=== PATIENT | female | born 1955 | race Caucasian/White ===

== ENCOUNTER 2016-08-12 13:02 | Inpatient (IN) | payer BC ==
[~2016-08-12] VITALS: Ht 167.6 cm; Wt 93.5 kg
[2016-08-18] MEDS ORDERED: DULE100A INH (09:03)
[2016-08-18] MEDS ORDERED: PROBCAP30 PO (09:03)
[2016-08-18] MEDS ORDERED: DIVA500T PO (09:03)
[2016-08-18] MEDS ORDERED: FLUT1SPR5 EACH NARE (09:03)
[2016-08-18] MEDS ORDERED: BUPR150T12 PO (09:03)
[2016-08-18] MEDS ORDERED: BUPR75TA PO (09:03)
[2016-08-18] MEDS ORDERED: VITA200012 PO (11:10)
[2016-08-18] MEDS ORDERED: ESTR1DIS2 T-DERMAL (11:11)
--- NOTE | 2016-08-19 06:48 | MH ---
cc: MIKI COATES M.D. DATE OF ADMISSION: 08/19/2016 ADMISSION DIAGNOSIS Lumbar spinal stenosis with instability. HISTORY This patient is a 60-year-old female with severe back, hip and leg pain, left greater than right. Investigative studies shows evidence of a high-grade stenosis at L3-4 with a grade 1 spondylolisthesis and advanced degenerative change with instability at the L4-5 level. The patient likely has a spontaneous fusion of L5-S1. Despite conservative care the patient is painful and symptomatic. She presents for surgical treatment. PAST MEDICAL HISTORY, SOCIAL HISTORY, FAMILY HISTORY, REVIEW OF SYSTEMS See attached notes. PHYSICAL EXAMINATION GENERAL: Average build female in moderate distress with her back, hip and leg. HEENT: Normocephalic, atraumatic. Pupils equal, round, reactive to light and accommodation. Extraocular motions intact. NECK: Supple. CHEST: Clear. HEART: Regular rate and rhythm. ABDOMEN: Soft, nontender with normoactive bowel sounds. MUSCULOSKELETAL EXAMINATION: Thoracolumbar spine restricted range of motion, pain with range of motion. Mild kyphotic deformity. Lower extremity straight leg raise is positive on the left, equivocal on the right. Motor examination shows weakness of the left anterior tibialis and extensor hallucis longus. IMPRESSION 1. Spondylolisthesis L3-4, grade 1. 2. Degenerative disc disease lumbar spine. 3. Lumbar spinal stenosis. 4. Left greater than right lumbosacral radiculopathy. PLAN Bilateral lumbar laminectomy from left L3-4 and L4-5, lateral recess decompression, subtotal facet resection, posterior spinal fusion, posterior spinal segmental instrumentation, posterolateral interbody fusion, interbody cage, bone grafting. CONSENT There are risks with surgery including infection, bleeding, loss of motion, continued pain, need for further surgery, neurologic and vascular injury. The patient understands these issues and wishes to press on with the surgery as outlined above. MD EDGARDO Guerrero/REHANA /9:42 PM /6:42 AM
[2016-08-19] MEDS ORDERED: LACTATED RINGER'S 1000 ML IV PRN (09:00)
[2016-08-19] MEDS ORDERED: SODIUM CHLORID 0.9% 500 ML IV PRN (09:00)
[2016-08-19] MEDS ORDERED: CHLORHEXIDINE GLUCONATE 2 % 1 PACK (2 CLOTHS) TOPICAL PRN (09:00)
[2016-08-19] MEDS ORDERED: INSULIN HUMAN REGULAR 1,000 UNITS/10 ML VIAL SQ PRN (09:00)
[2016-08-19] MEDS ORDERED: ceFAZolin 2 GM PREMIX 50 ML IV SCH (09:00)
[2016-08-19] MEDS ORDERED: METOPROLOL TARTRATE 25 MG TAB PO PRN (09:00)
[2016-08-19] MEDS ORDERED: VANCOMYCIN 1000 MG/NS 250 ML (for <70 kg) IV SCH ×2 (09:15)
[2016-08-19] MEDS ORDERED: POVIDONE IODINE 7.5% SCRUB 118 ML BOTTLE TOPICAL SCH (09:15)
[2016-08-19] MEDS ORDERED: POVIDONE IODINE 5% (ANTISEPSIS KIT) 4 APPLICATIONS EACH NARE PRN (09:15)
[2016-08-19 09:32] VITALS: BP 142/83; PULSE 70; RESP 20; TEMP 97.6; O2SAT 96
[2016-08-19] MEDS ORDERED: GENTAMICIN SULFATE 80 MG/2 ML VIAL ONE (11:11)
[2016-08-19] MEDS ORDERED: FAMOTIDINE 20 MG/2 ML VIAL ONE (11:29)
[2016-08-19] MEDS ORDERED: MIDAZOLAM HCL 2 MG/2 ML VIAL ONE (11:29)
[2016-08-19] MEDS ORDERED: DEXAMETHASONE SOD PHOS 4 MG/ML VIAL ONE (11:29)
[2016-08-19] MEDS ORDERED: ACETAMINOPHEN 1000 MG/100 ML VIAL IV ONE (11:29)
[2016-08-19] MEDS ORDERED: fentaNYL CITRATE 250 MCG/5 ML AMP ONE ×2 (11:30→17:18)
[2016-08-19] MEDS ORDERED: NEOSTIGMINE 3 MG/3 ML SYR IV ONE (12:00)
[2016-08-19] MEDS ORDERED: PROPOFOL 200 MG/20 ML AMP IV ONE (12:00)
[2016-08-19] MEDS ORDERED: LACTATED RINGER'S 1000 ML INJ 2,000 ML IV ONE (12:00)
[2016-08-19] MEDS ORDERED: ONDANSETRON HCL 4 MG/2 ML VIAL IV PUSH ONE (12:00)
[2016-08-19] MEDS ORDERED: GELATIN 12 MM/7 MM FOAM ONE (12:20)
[2016-08-19] MEDS ORDERED: MISC-163 (16:12)
[2016-08-19] MEDS ORDERED: WALKER WHEELS/F1 MIS (16:12)
--- NOTE | 2016-08-19 16:14 | HHI.FF ---
Face to Face Verification Diagnosis: (1) Lumbosacral radiculopathy (2) Lumbar spinal stenosis (3) Lumbar spine instability Physical Therapy Gait training, Safety evaluation, Transfer training, bed to chair S/P Spinal Fusion: Gait training with walker, Weight bearing as tolerated, No twisting of torso, No bending Additional Instructions PT 4 days/wk for 1 week. WBAT w brace. 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 Walker as needed. LE strengthening. Nursing RN Days per Week: 5 x Week(s): 1 Dressing Changes: Daily dressing change, 4x4s, Coverderm/Primapore Additional Instructions Dry dressing change daily w etoh. Ok to shower pod#6 if dry and no drainage. I have seen patient Oralia Sheridan on 08/19/16. My clinical findings support the need for the requested home health care services because: Limited ability to care for self High risk of falls I certify that my clinical findings support that this patient is homebound because: Post-op weakness Unsteady gait/balance Kavya Wood Aug 19, 2016 16:14
[2016-08-19] MEDS ORDERED: SOD PHOSPHATE/SOD BIPHOSPHATE (ADULT) ENEMA 133ML PR PRN (16:30)
[2016-08-19] MEDS ORDERED: NALOXONE HCL 0.4 MG/ML AMP IV PRN (16:30)
[2016-08-19] MEDS ORDERED: ceFAZolin INJ 1,000 MG VIAL IV ONE (16:30)
[2016-08-19] MEDS ORDERED: ALUMINUM/MAGNESIUM/SIMETH 30 ML CUP PO PRN (16:30)
[2016-08-19] MEDS ORDERED: SODIUM CHLORIDE 0.9% FLUSH 5 ML FLUSH IVF PRN (16:30)
[2016-08-19] MEDS ORDERED: Post-op Orders (for Pharmacy) MISC XX ONE (16:30)
--- NOTE | 2016-08-19 16:31 | PD.OP ---
cc: Miguel Ángel Danielle MD Operative Report Date of Surgery: Aug 19, 2016 Preoperative Diagnosis: Lumbar spinal stenosis, L3 4 and L4 5. Spondylolisthesis L3 4, grade 1. Degenerative disc disease lumbar spine. Segmental kyphosis, L4 5. Bilateral left greater than right lumbosacral radiculopathy. Spontaneous fusion, L5-S1, remote Postoperative Diagnosis: Same Procedure: Bilateral lumbar laminectomy from the left L3, L4 with bilateral lateral recess decompression. Bilateral lumbar laminectomy L4 5 from the left with subtotal facet resection. Posterior spinal fusion, L3 to L5. Posterior spinal segmental instrumentation L3 to L5. Posterior lateral interbody fusion, L3 4 and L4 5. Placement of interbody cages, L3 4 and L4 5. Bone grafting of the lumbar spine Anesthesia: Gen. Surgeon: Miguel Ángel Danielle Performance Engineer(s): KYRA Horner Operation and Findings: EBL: 200 ml NOTE: Kalina Horner PA-C was present for the entire surgical procedure as my certified surgical first assistant. In my medical opinion her skill and care was necessary for proper management of this patient INDICATIONS: Is patient is a 60-year-old female with severe back and leg pain. She has segmental instability at L3 4 with a grade 1 spondylolisthesis. She has remarkable degenerative changes at the L4 5 level and a spontaneous fusion at L4 5 S1. She has a segmental kyphosis at the L4 5 level. This patient presents for surgical treatment. INSTRUMENTATION: Stax cages and instrumentation PROCEDURE: The patient brought to the operating room and anesthetized the supine position. The patient positioned prone on the Hieu frame on the Teddy table. All pressure points are protected. The back was scrubbed with alcohol followed by Hibiclens followed by ChloraPrep and draped sterilely and antibiotics were given within a routine time window. A timeout was done. Lateral radiographic images used to identify the proper level for the procedure. Compared care for the preoperative studies. Skin markings were made anticipating surgical treatment. We started at the L3 4 level. A left paramedian incision was made. The lamina and facet joint was exposed. We used the proper retractor was positioned over this region. The microscope was rolled into the field for visualization. A high-speed bur was used to take the lamina down and doing a subtotal facet resection. We extended across midline performing a bilateral lateral recess decompression. There was a high-grade stenosis bilaterally. No complication was appreciated. The exiting and crossing nerve roots were completely decompressed. A total discectomy was accomplished. The disc space was prepared. All cartilaginous material from the disc space was removed. A combination of demineralized bone matrix and Nucel stem cells were mixed together on the back table.. These were injected into the disc space. The cage was then placed according to point of sale associate's recommendation and deployed. Position was satisfactory. Additional bone graft was placed into the disc space. We moved to the L4 5 level. A separate fascial incision was made. A dilating system was placed down to the interlaminar space and held provisionally to the side of the table. The microscope was brought back into the field. A high- speed bur under the microscope was used to perform a bilateral laminectomy from that side. A lateral recess decompression bilaterally was accomplished using straight and angled Kerrison punches. A partial medial facetectomy was accomplished. The crossing and exiting nerve roots were completely decompressed. A subtotal facet resection was accomplished. We then entered the disc space. All disc material was removed. This was a very sclerotic level. We worked very hard to release this anteriorly allowing partial correction of this patient's kyphotic deformity. The outer edge of the facet joint was identified and prepared. Under fluoroscopic images, a bur was used to gain entrance into the pedicle followed by placement of a blunt probe, an awl and placement of proper length screws. Each screw was charged with electric current there are no abnormal potentials registered in either lower extremity. On the left side we placed screws at L3, L4 and L5. A proper length camryn was fitted and attached and tightened according to point of sale associate's recommendation. The wound was irrigated copiously. Bone grafting was placed along the lateral gutter in the region of the transverse process across this level. This was closed in layers with #1 Vicryl, 2-0 Vicryl and running intradermal 3-0 Vicryl followed by Steri-Strips and benzoin. On the contralateral side a separate exposure was made. The outer edge of the facet joints were identified. A bur was used to gain entrance into the pedicle followed by placement of a probe and proper length screws. Each screw was charged with electric current and no abnormal potentials registered in either lower extremity. Screws were placed at L3, L4 and L5. The wound was irrigated copiously. Bone graft placed along the transverse process across this level. It was closed in layers using #1 Vicryl, 2-0 Vicryl and running intradermal 3-0 Vicryl followed by Steri-Strips and benzoin. Intraoperative radiographs were obtained. No complication was appreciated. The patient had a sterile dressing applied. The patient was awakened and taken to recovery room in satisfactory condition. FINDINGS: It was evidence of severe spinal stenosis at L3 4. Moderate to severe stenosis was seen at the L4 5 level. Significant instability was seen at both levels. The final construct was felt be very satisfactory. No complication was appreciated. Miguel Ángel Danielle MD Aug 19, 2016 16:31
[2016-08-19] MEDS ORDERED: HYDR-3580 PO (16:34)
[2016-08-19] MEDS ORDERED: DO NOT ADM ANY ANTICOAGULANT DRUGS PRN (17:05)
[2016-08-19] MEDS ORDERED: *morphine SULFATE 8 MG/ML PERIprocedure ONLY ONE ×3 (17:16→17:50)
[2016-08-19] MEDS: MORPHINE SULFATE 30 MG/30 ML PCA IV SCH (17:44)
[2016-08-19] MEDS: LACTATED RINGER'S 1000 ML INJ 1,000 ML IV SCH (17:45)
--- NOTE | 2016-08-19 18:04 | RADRPT ---
EXAM DATE/TIME: 08/19/2016 16:11 [place] COMPARISON: No previous studies available for comparison. INDICATIONS : Fusion L3,L4 and L4,L5 with screw and camryn placement., MEDICAL HISTORY : None. SURGICAL HISTORY : None. ENCOUNTER: Initial ACUITY: 1 day PAIN SCORE: Non-responsive. LOCATION: Lumbar spine. FINDINGS: 2 projections Limited evaluation of the low lumbar spine reveals posterior hardware fusion with hardw are extending from L3 through L5. The hardware is intact. Alignment is satisfactory. Disc spaces appe ar well-positioned. CONCLUSION: Satisfactory operative appearance. Twan Jackson MD on August 19, 2016 at 18:01 Board Certified Radiologist. This report was verified electronically.
[2016-08-19 20:00] VITALS: BP 142/76; PULSE 70; RESP 18; TEMP 96; O2SAT 94
[2016-08-19] MEDS ORDERED: NON-FORMULARY DRUG (Mometasone-Formoterol 120 Act Inh (Dulera 120 Act Inh) 2 PUFF) INH SCH (21:00)
[2016-08-19] MEDS ORDERED: PT DULERA SCH (21:00)
[2016-08-19] MEDS: SODIUM CHLORIDE 0.9% FLUSH 5 ML FLUSH IVF SCH (21:31)
[2016-08-19] MEDS: FLUTICASONE PROPIONATE 50 MCG/ACT 16 GM NASAL SPRAY EACH NARE SCH (21:32)
[2016-08-19] MEDS: PCA - TOTAL MG MORPHINE DELIVERED PER SHIFT SCH (21:33)
[2016-08-19] MEDS: buPROPion HCL 75 MG TAB PO SCH (21:34)
[2016-08-19] MEDS: ACETAMINOPHEN/HYDROcodone 325 MG/7.5 MG TAB PO PRN (21:35)
[2016-08-19] MEDS: DIVALPROEX DR 500 MG TABEC PO SCH (21:35)
[2016-08-19] MEDS: ONDANSETRON HCL 4 MG/2 ML VIAL IV PRN (21:40)
[2016-08-20] VITALS: BP 105/63; PULSE 85; RESP 17; TEMP 97.1; O2SAT 93
[2016-08-20 04:00] VITALS: BP 114/69; PULSE 85; RESP 17; TEMP 96.8; O2SAT 97
[2016-08-20] MEDS: LACTATED RINGER'S 1000 ML INJ 1,000 ML IV SCH ×2 (04:35→18:00)
[2016-08-20] MEDS: ONDANSETRON HCL 4 MG/2 ML VIAL IV PRN (04:35)
[2016-08-20] MEDS: ACETAMINOPHEN/HYDROcodone 325 MG/7.5 MG TAB PO PRN ×2 (04:39→13:36)
[2016-08-20] MEDS: MORPHINE SULFATE 30 MG/30 ML PCA IV SCH ×2 (04:50→18:48)
[2016-08-20] MEDS ORDERED: RESP: ALBUTEROL 1.25 MG/3 ML NEB (PRN) NEB (05:15)
--- NOTE | 2016-08-20 05:27 | PD.CONS ---
[facility] By Reason for Consult medical management Primary Care Physician Javi Villarreal MD Diagnoses: History of Present Illness patient is a 60 y/o female with history of lumbar spinal stenosis who underwent lumbar laminectomy and posterior spinal fusion on 08/20/16. at the time of my evaluation she was resting in no acute distress, however complaining of back pain. otherwise denies any chest pain, sob or dizziness. she had some nausea and emesis over night which has almost resolved. Review of Systems Constitutional: DENIES: Fever, Weight loss, Chills, Night Sweats Eyes: DENIES: Blurred vision, Diplopia, Vision loss, Double Vision Ears, nose, mouth, throat: DENIES: Tinnitus, Vertigo, Throat pain, Epistaxis Respiratory: DENIES: Apneas, Cough, Snoring, Wheezing, Hemoptysis, Sputum production, Shortness of breath Cardiovascular: DENIES: Chest pain, Palpitations, Syncope, Dyspnea on Exertion , PND, Lower Extremity Edema, Orthopnea, Claudication Gastrointestinal: DENIES: Abdominal pain, Black stools, Bloody stools, Constipation, Diarrhea, Nausea, Vomiting, Difficulty Swallowing, Anorexia Genitourinary: DENIES: Urinary frequency, Urgency, Hematuria, Dysuria Musculoskeletal: COMPLAINS OF: Back pain, DENIES: Joint pain, Muscle aches, Stiffness, Joint Swelling Integumentary: DENIES: Rash Neurologic: DENIES: Abnormal gait, Headache, Localized weakness, Paresthesias, Seizures, Speech Problems, Tremor, Poor Balance Psychiatric: DENIES: Anxiety, Confusion, Mood changes, Depression, Hallucinations, Agitation, Suicidal Ideation, Homicidal Ideation, Delusions Past Family Social History Allergies: Coded Allergies: Iodine (Verified Allergy, Severe, Anaphylaxis, 08/19/16) Nonsteroidal Anti-Inflammatory Agts (Verified Allergy, Severe, 08/19/16) PT HAS STAGE 3 KIDNEY DISEASE Shellfish (Verified Allergy, Severe, Anaphylaxis, 08/19/16) Tetracycline (Verified Allergy, Severe, Anaphylaxis, 08/19/16) all based tetracycline products E-Mycin (Verified Adverse Reaction, Severe, Anaphylaxis, 08/19/16) Uncoded Allergies: ALL MYCINS (Allergy, Severe, Anaphylaxis, 08/18/16) PT STATES SHE CANNOT TAKE ANY MYCINS Past Medical History spinal stenosis bipolar disorder asthma renal insufficiency Past Surgical History foot surgery partial hysterectomy Reported Medications divalproex bupropion mometasone-formoterol flonase vitamin d estradiol Active Ordered Medications Current Medications Lactated Ringer's 1,000 ml @ 0 mls/hr Q0M PRN IV SEE LABEL COMMENTS; Start 08/19 at 09:00; Stop 08/19/16 at 17:00; Status DC Sodium Chloride (NS 500 ml Inj) 500 ml @ 30 mls/hr [id number] PRN IV SEE LABEL COMMENTS; Start 08/19/16 at 09:00; Stop 08/19/16 at 17:00; Status DC Metoprolol Tartrate (Lopressor) 25 mg [employer]INAL [employer]ICE PROGRAM DIRECTOR PRN PO SEE LABEL COMMENTS; Start 08/19/16 at 09:00; Stop 08/19/16 at 17:00; Status DC Chlorhexidine Gluconate (Chlorhexidine 2% Cloth) 3 pack [employer] PROGRAM DIRECTOR PRN TOPICAL SEE LABEL COMMENTS; Start 08/19/16 at 09:00; Stop 08/19/16 at 17:02; Status DC Insulin Human Regular See Protocol Table ... [employer] PROGRAM DIRECTOR PRN SQ SEE PROTOCOL TABLE ; Start 08/19/16 at 09:00; Stop 08/19/16 at 17:00; Status DC Cefazolin Sodium/ Dextrose (Ancef 2 Gm Premix) 50 ml @ 100 mls/hr [employer]GRAM DIRECTOR IV Last administered on 08/19/16 12:30; Start 08/19/16 at 09:00; Stop 08/19/16 at 17: 00; Status DC Povidone Iodine (Betadine 5% Antisepsis Kit) 1 applic [employer] PROGRAM DIRECTOR PRN EACH NARE SEE LABEL COMMENTS; Start 08/19/16 at 09:15; Stop 08/19/16 at 17:02; Status DC Povidone Iodine 1 applic 1 applic ONCE TOPICAL ; Start 08/19/16 at 09:15; Stop at 17:03; Status DC Vancomycin HCl/ Sodium Chloride (Vancomycin Inj/ NS 250 ml Inj) 250 ml @ 250 mls/hr [employer] PROGRAM DIRECTOR IV Last administered on 08/19/16 10:15; Start 08/19/16 at 09:15 ; Stop 08/19/16 at 17:01; Status DC Gentamicin Sulfate (Gentamicin Inj) 160 mg STK-MED ONCE .ROUTE ; Start 08/19/16 at 11:11; Stop 08/19/16 at 11:12; Status DC Acetaminophen (Ofirmev Inj) 1,000 mg STK-MED ONCE IV ; Start 08/19/16 at 11:29; Stop 08/19/16 at 11:30; Status DC Midazolam HCl (Versed Inj) 2 mg STK-MED ONCE .ROUTE ; Start 08/19/16 at 11:29; Stop 08/19/16 at 11:30; Status DC Dexamethasone Sodium Phosphate (Decadron Inj) 4 mg STK-MED ONCE .ROUTE ; Start 08/19/16 at 11:29; Stop 08/19/16 at 11:30; Status DC Famotidine (Pepcid Inj) 20 mg STK-MED ONCE .ROUTE ; Start 08/19/16 at 11:29; Stop 08/19/16 at 11:30; Status DC Fentanyl Citrate (fentaNYL INJ) 250 mcg STK-MED ONCE .ROUTE ; Start 08/19/16 at 11:30; Stop 08/19/16 at 11:31; Status DC Gelatin (Gelfoam 12 Mm/7 Mm Top) 1 foam STK-MED ONCE .ROUTE ; Start 08/19/16 at 12:20; Stop 08/19/16 at 12:21; Status DC Bupropion HCl (Wellbutrin Sr) 150 mg DAILY PO ; Start 08/20/16 at 09:00 Bupropion HCl (Wellbutrin) 75 mg HS PO Last administered on 08/19/16 21:34; Start 08/19/16 at 21:00 Divalproex Sodium (Depakote Dr) 500 mg BID PO Last administered on 08/19/16 21: 35; Start 08/19/16 at 21:00 Fluticasone Propionate (Flonase Alfred Spr) 1 spray BID EACH NARE ; Start 08/19/16 at 21:00 Non-Formulary Medication 2 puff 2 puff BID INH AST; Start 08/19/16 at 21:00; Status UNV Lactated Ringer's (Lr 1000 ml Inj) 1,000 ml @ 80 mls/hr [id number] IV Last administered on 08/20/16 04:35; Start 08/19/16 at 17:00 IV Flush (NS Flush) 2 ml UNSCH PRN IVF FLUSH AFTER USING IV ACCESS; Start at 16:30 IV Flush (NS Flush) 2 ml BID IVF ; Start 08/19/16 at 21:00 Miscellaneous Information STAT ONCE XX ; Start 08/19/16 at 16:30; Stop 08/19/16 at 16:57; Status DC Cefazolin Sodium/ Sodium Chloride (Ancef Inj/NS Inj) 100 ml @ 200 mls/hr Q8H IV Last administered on 08/19/16 23:14; Start 08/19/16 at 16:30; Stop 08/20/16 at 08:59 Acetaminophen/ Hydrocodone Bitart ([place] 7.5-325 Mg) 1 tab Q4H PRN PO PAIN SCALE 1 TO 5 Last administered on 08/20/16 04:39; Start 08/19/16 at 16:30 Acetaminophen/ Hydrocodone Bitart ([place] 7.5-325 Mg) 2 tab Q6H PRN PO PAIN SCALE 6 TO 10; Start 08/19/16 at 16:30 Ondansetron HCl (Zofran Inj) 4 mg Q6H PRN IV NAUSEA OR VOMITING Last administered on 08/20/16 04:35; Start 08/19/16 at 16:30 Docusate Sodium (Colace) 100 mg BID PO ; Start 08/20/16 at 21:00 Al Hydrox/Mg Hydrox/Simethicone (Mag-Al Plus Susp Liq) 30 ml Q6H PRN PO INDIGESTION; Start 08/19/16 at 16:30 Zolpidem Tartrate (Ambien) 5 mg HS PRN PO SLEEP; Start 08/19/16 at 21:00 Bisacodyl (Dulcolax Supp) 10 mg DAILY PRN RECTAL CONSTIPATION; Start 08/19/16 at 16:30 Sodium Biphosphate/ Sodium Phosphate (Fleets Enema (Adult)) 133 ml DAILY PRN DC CONSTIPATION; Start 08/19/16 at 16:30 Naloxone HCl (Narcan Inj) 0.4 mg UNSCH PRN IV RESPIRATORY RATE LESS THAN 10 Last administered on 08/19/16 17:43; Start 08/19/16 at 16:30 Morphine Sulfate (Morphine 1 Mg/ ml LEASING MACHINE TENDER) 30 mg UNSCH IV Last administered on 04:50; Start 08/19/16 at 16:30 LEASING MACHINE TENDER Dosage Infused (Pha) 1 Q8HR .XX Last administered on 08/19/16 21:33; Start 08/19/16 at 22:00 Morphine Sulfate (Morphine Inj) 5 mg Q4H PRN IV PUSH PAIN SCALE 7 TO 10; Start 08/19/16 at 16:30 Cefazolin Sodium (Ancef Inj) 1,000 mg STK-MED ONCE IV Last administered on 16:30; Start 08/19/16 at 16:30; Stop 08/19/16 at 16:48; Status DC Miscellaneous Information ALL NURSING DEPARTME... UNSCH PRN .XX SEE LABEL COMMENTS; Start 08/19/16 at 17:05; Stop 08/20/16 at 17:04 Morphine Sulfate (*morphine INJ PERIprocedure ONLY) 8 mg STK-MED ONCE .ROUTE Last administered on 08/19/16 17:16; Start 08/19/16 at 17:16; Stop 08/19/16 at 17: 17; Status DC Fentanyl Citrate (fentaNYL INJ) 250 mcg STK-MED ONCE .ROUTE ; Start 08/19/16 at 17:18; Stop 08/19/16 at 17:19; Status DC Morphine Sulfate (*morphine INJ PERIprocedure ONLY) 8 mg STK-MED ONCE .ROUTE Last administered on 08/19/16 17:30; Start 08/19/16 at 17:30; Stop 08/19/16 at 17: 31; Status DC Patient Own Medication PT OWN MED: DUL... BID INH ; Start 08/19/16 at 21:00; Status Hold Morphine Sulfate (*morphine INJ PERIprocedure ONLY) 8 mg STK-MED ONCE .ROUTE Last administered on 08/19/16 17:51; Start 08/19/16 at 17:50; Stop 08/19/16 at 17: 51; Status DC Social History doesn't smoke.drinks occasionally. Physical Exam Vital Signs Vital Signs Date Time Temp Pulse Resp B/P Pulse Ox O2 Delivery O2 Flow Rate FiO2 08/20/16 00:00 97.1 85 17 105/63 93 08/19/16 20:50 Nasal Cannula 3.00 08/19/16 20:00 96.0 70 18 142/76 94 08/19/16 18:00 97.4 66 15 103/72 94 Nasal Cannula 3 4/4/17 17:45 67 15 116/70 9 Nasal Cannula 3 08/19/16 17:44 15 08/19/16 17:30 69 15 119/63 95 Nasal Cannula 3 08/19/16 17:15 73 15 139/83 95 Nasal Cannula 3 08/19/16 17:08 97.8 76 14 143/92 95 Simple Mask 8 08/19/16 09:32 97.6 70 20 142/83 96 Physical Exam GENERAL: This is a well-nourished, well-developed patient, in no apparent distress. SKIN: No rashes, ecchymoses or lesions. Cool and dry. HEAD: Atraumatic. Normocephalic. No temporal or scalp tenderness. EYES: Pupils equal round and reactive. Extraocular motions intact. No scleral icterus. No injection or drainage. ENT: Nose without bleeding, purulent drainage or septal hematoma. Throat without erythema, tonsillar hypertrophy or exudate. Uvula midline. Airway patent. NECK: Trachea midline. No JVD or lymphadenopathy. Supple, nontender, no meningeal signs. CARDIOVASCULAR: Regular rate and rhythm without murmurs, gallops, or rubs. RESPIRATORY: Clear to auscultation. Breath sounds equal bilaterally. No wheezes , rales, or rhonchi. GASTROINTESTINAL: Abdomen soft, non-tender, nondistended. No hepato-splenomegaly , or palpable masses. No guarding. MUSCULOSKELETAL: Extremities without clubbing, cyanosis, or edema. No joint tenderness, effusion, or edema noted. No calf tenderness. Negative Homans sign bilaterally. NEUROLOGICAL: Awake and alert. Cranial nerves II through XII intact. Motor and sensory grossly within normal limits. Five out of 5 muscle strength in all muscle groups. Normal speech. Laboratory Laboratory Tests Test 08/19/16 08:47 Blood Type O POSITIVE Antibody Screen NEGATIVE Blood Bank Comment Imaging Last Impressions Lumbar Spine X-Ray 08/19/16 0000 Signed Impressions: Service Date/Time: Friday, August 19, 2016 16:11 - CONCLUSION: Satisfactory operative appearance. Twan Jackson MD Assessment and Plan Assessment and Plan A/P - lumbar spinal stenosis- s/p lumbar laminectomy and posterior spinal fusion continue with pain control and PT- management per ortho -asthma; neb treatment as needed -bipolar disorder; resumed home meds -DVT prophylaxis with SCD's thank you for the consult. Discussed Condition With the patient and RN. Callie Wilks MD Aug 20, 2016 05:27
[2016-08-20] MEDS: PCA - TOTAL MG MORPHINE DELIVERED PER SHIFT SCH ×3 (05:29→21:11)
[2016-08-20 07:11] LABS: HEMATOCRIT 37.1 % (35.0-46.0); REVIEW FLAG FINAL
--- NOTE | 2016-08-20 07:43 | PD.ORT.PN ---
Subjective Subjective Remarks Moderate pain and aching. Significant low back discomfort. No new radiating leg pain. Moderate nausea that 'comes in waves'. No new CP, SOB or abd pain. Appetite poor. Objective Vitals Vital Signs Date Time Temp Pulse Resp B/P Pulse Ox O2 Delivery O2 Flow Rate FiO2 08/20/16 04:00 96.8 85 17 114/69 97 08/20/16 00:00 97.1 85 17 105/63 93 08/19/16 20:50 Nasal Cannula 3.00 08/19/16 20:00 96.0 70 18 142/76 94 08/19/16 18:00 97.4 66 15 103/72 94 Nasal Cannula 3 08/19/16 17:45 67 15 116/70 9 Nasal Cannula 3 08/19/16 17:44 15 08/19/16 17:30 69 15 119/63 95 Nasal Cannula 3 08/19/16 17:15 73 15 139/83 95 Nasal Cannula 3 08/19/16 17:08 97.8 76 14 143/92 95 Simple Mask 8 08/19/16 09:32 97.6 70 20 142/83 96 I/O 08/19/16 08/19/16 08/19/16 08/20/16 08/20/16 08/20/16 07:00 15:00 23:00 07:00 15:00 23:00 Intake Total 2146 ml 744 ml Output Total 870 ml 300 ml Balance 1276 ml 444 ml Intake Oral 120 ml 120 ml IV Total 426 ml 624 ml Other 1600 ml Output Urine Total 670 ml 300 ml Estimated Blood Loss 200 ml # Bowel Movements 0 0 Result Diagram: 08/20/16 0615 Objective Remarks Laying in bed, at bedside NAD but appears uncomfortable VSS L/S Dressing c/d/i, mild SS drainage, mild spasms, no erythema Both calves supple, neg homans bilat +motor at, +sens, +nvi Assessment & Plan Ortho Post Op Day #: 1 Problem List: Assessment and Plan pod#1 s/p Lami L34, L45, Fusion L3-5, bone graft Continue SHAREHOLDER for pain control. Phenergan and zofran for nausea. PT - OOB w brace. Walker. Dry dressing changes beginning pod#2. D/C planning, [facility] thursday. DME written. Kavya Wood Aug 20, 2016 07:43
[2016-08-20] MEDS ORDERED: ONDANSETRON HCL 4 MG/2 ML VIAL IV PUSH PRN (07:45)
[2016-08-20] MEDS ORDERED: PROMETHAZINE HCL 25 MG TAB PO PRN (07:45)
[2016-08-20 08:00] VITALS: BP 109/56; PULSE 73; RESP 18; TEMP 97.4; O2SAT 96
[2016-08-20] MEDS: FLUTICASONE PROPIONATE 50 MCG/ACT 16 GM NASAL SPRAY EACH NARE SCH ×2 (09:00→21:00)
[2016-08-20] MEDS: SODIUM CHLORIDE 0.9% FLUSH 5 ML FLUSH IVF SCH ×2 (09:00→21:00)
[2016-08-20] MEDS: buPROPion HCL 150 MG SUSTAINED RELEASE TAB PO SCH (09:20)
[2016-08-20] MEDS: DIVALPROEX DR 500 MG TABEC PO SCH ×2 (09:20→21:10)
[2016-08-20 16:05] VITALS: BP 99/65; PULSE 72; RESP 18; TEMP 97.1; O2SAT 98
[2016-08-20 19:08] VITALS: O2SAT 96
[2016-08-20 19:45] VITALS: BP 103/52; PULSE 80; RESP 17; TEMP 96.9; O2SAT 96
[2016-08-20] MEDS: DOCUSATE SODIUM 100 MG CAP PO SCH (21:09)
[2016-08-20] MEDS: buPROPion HCL 75 MG TAB PO SCH (21:10)
[2016-08-21] VITALS (7 sets, daily range): BP systolic 109–134; BP diastolic 46–69; PULSE 74–87; RESP 16–20; TEMP 97.1–99; O2SAT 91–96
[2016-08-21] MEDS: LACTATED RINGER'S 1000 ML INJ 1,000 ML IV SCH ×2 (01:32→08:53)
[2016-08-21] MEDS: PCA - TOTAL MG MORPHINE DELIVERED PER SHIFT SCH (05:32)
[2016-08-21] MEDS: ACETAMINOPHEN/HYDROcodone 325 MG/7.5 MG TAB PO PRN (08:50)
[2016-08-21] MEDS: DIVALPROEX DR 500 MG TABEC PO SCH ×2 (08:50→20:42)
[2016-08-21] MEDS: DOCUSATE SODIUM 100 MG CAP PO SCH ×2 (08:51→20:42)
[2016-08-21] MEDS: buPROPion HCL 150 MG SUSTAINED RELEASE TAB PO SCH (08:51)
[2016-08-21] MEDS: SODIUM CHLORIDE 0.9% FLUSH 5 ML FLUSH IVF SCH ×2 (08:52→20:44)
[2016-08-21] MEDS: FLUTICASONE PROPIONATE 50 MCG/ACT 16 GM NASAL SPRAY EACH NARE SCH ×2 (08:54→20:52)
--- NOTE | 2016-08-21 09:15 | PD.ORT.PN ---
Subjective Subjective Remarks She continues to have moderate pain and aching low back. Left hip occasional burning. Notes history of 'thick mucous' and occasional sinus headaches. Usually takes guafenisine. Nausea a little better. Was straight cath'd last night. Appetite a little better. No new fever, abd pain, CP or SOB. Objective Vitals Vital Signs Date Time Temp Pulse Resp B/P Pulse Ox O2 Delivery O2 Flow Rate FiO2 08/21/16 08:00 97.1 76 20 112/63 93 08/21/16 04:00 98.7 87 18 121/67 93 08/21/16 00:00 99.0 76 18 134/61 96 08/20/16 19:45 96.9 80 17 103/52 96 08/20/16 19:08 96 21 08/20/16 18:53 18 08/20/16 18:48 18 08/20/16 16:05 97.1 72 18 99/65 98 08/20/16 14:36 18 08/20/16 14:00 18 I/O 08/20/16 08/20/16 08/20/16 08/21/16 08/21/16 08/21/16 07:00 15:00 23:00 07:00 15:00 23:00 Intake Total 744 ml 640 ml 941 ml 1012 ml Output Total 300 ml 650 ml 675 ml Balance 444 ml -10 ml 941 ml 337 ml Intake Oral 120 ml 480 ml 480 ml IV Total 624 ml 640 ml 461 ml 532 ml Output Urine Total 300 ml 650 ml 675 ml # Voids 0 # Bowel Movements 0 0 0 Result Diagram: 08/20/16 0615 Objective Remarks Laying in bed, at bedside NAD VSS L/S Dressing c/d/i, no new drainage, mild spasms, no erythema Both calves supple, neg homans bilat +motor at, +sens, +nvi Assessment & Plan Ortho Post Op Day #: 2 Problem List: Assessment and Plan pod#2 s/p Lami L34, L45, Fusion L3-5, bone graft D/C WO[facility]WYER - change to po pain meds. [place] 7.5 to norco 10 for pain control. Guaifenesin bid for hx of thick mucous. Flomax 0.4 bid today then qd thereafter. PT - OOB w brace. Walker. I highly encouraged ambulation and IS. Dry dressing changes beginning today D/C planning, [facility] thursday. DME written. Kavya Wood Aug 21, 2016 09:15
[2016-08-21] MEDS ORDERED: ACETAMINOPHEN/HYDROcodone 325 MG/10 MG TAB PO PRN (09:30)
--- NOTE | 2016-08-21 09:42 | HHI.DS ---
Discharge Summary Admission Date Aug 19, 2016 at 08:16 Discharge Date: Aug 23, 2016 Admitting Diagnosis see below Diagnosis: (1) Lumbar spine instability Diagnosis: Principal (2) Lumbar spinal stenosis Diagnosis: Principal (3) Lumbosacral radiculopathy Diagnosis: Principal (4) Urinary retention Diagnosis: Secondary Procedures Lumbar laminectomy L34, L45, posterior lumbar fusion L3-5, interbody cages L34, L45, posterior segmental instrumentation, bone graft. Brief History This is a 60 year old female patient with a multi-year history of back and leg pain. She sought out treatment years ago and physical therapy was prescribed. Eventually she was referred to pain management for injections. She was only able to get temporary relief. She was referred to Dr. Miguel Ángel Danielle at the end of 2015. Surgical treatment was recommended. She struggled getting insurance authorization for her procedure despite her functio continuing to decline. Once auth was obtained she moved forward with surgical planning. CBC/BMP: 08/20/16 0615 PE at Discharge Laying in bed, at bedside NAD VSS L/S Dressing c/d/i, no new drainage, mild spasms, no erythema Both calves supple, neg homans bilat +motor at, +sens, +nvi Hospital Course Surgical treatment was performed on the day of admission without complication. She recovered well in PACU and was transferred to the orthopaedic floor. Pain was controlled with IV and oral medications though she struggled with nausea and pain control pod#1. She was found to have urinary retention so she was straight catheterized and placed on flomax. She was compliant with physical therapy though performed limited ambulation. After 4 days she was urinating normally and was found to be stable. She was discharged home with home health care and instructed to continues her lumbar brace frameman when out of bed and to pursue a high fiber diet for the next 5 days. Pt Condition on Discharge: Stable Discharge Disposition: Discharge Home Discharge Instructions Diet Instructions: As Tolerated, No Restrictions Activities You Can Perform: Weight Bearing as Jamey, See Additionl Instruction Additional Activity Instruc.: Out of bed with brace New Medications: 3-in-1 Bedside Toilet (3-in-1 Bedside Toilet) 1 Mis Mis 1 EA .ROUTE DIRECTED #1 EA Walker with Front Wheels (Walker with Front Wheels) 1 Mis Mis 1 EA .ROUTE DIRECTED #1 Ref 0 EA Hydrocodone-Acetaminophen (Hydrocodone-Acetaminophen) 7.5-325 mg Tab 1 TAB PO Q4H PRN PAIN SCALE 1 TO 5 #50 TAB Continued Medications: Bupropion ER 12 HR (Smoking Deterrent) (Bupropion Sr 12 HR) 150 Mg Tab 150 MG PO DAILY Take 1 tablet daily x 3 days then twice daily thereafter. TAB Bupropion HCl (Bupropion HCl) 75 Mg Tab 75 MG PO HS Control Depression Ref 0 TAB Cholecalciferol (Vitamin D3) 2,000 Unit Tab 2000 UNITS PO DAILY Nutritional Supplement #1 Ref [address] (Divalproex DR) 500 Mg Tabdr 500 MG PO BID Control Seizures #60 Ref 0 TAB Estradiol Patch 84 HR (Estradiol Patch 84 HR) 0.1 Mg/24 Hr Patch 1 PATCH T-DERMAL 2XWEEK Remove old patch and discard when new patch being placed.Change same days each week. Estrogen Supplements #8 Ref 0 PATCH Fluticasone Nasal [place] (Flonase Nasal [place]) 50 Mcg/Act [place] 50 MCG EACH NARE BID Allergies #1 Ref 0 BOTTLE Mometasone-Formoterol 120 Act Inh (Dulera 120 Act Inh) 100-5 Mcg/Act Inh 2 PUFF INH BID Asthma Management #1 Ref 0 INHALER Probiotic Product (Florajen3) 1 Cap Cap 1 CAP PO DAILY Kavya Wood Aug 21, 2016 09:42
[2016-08-21] MEDS ORDERED: HYDR-3583 PO (09:44)
--- NOTE | 2016-08-21 09:48 | HHI.DCPOC ---
Discharge Care Plan Diagnosis: (1) Lumbosacral radiculopathy (2) Lumbar spinal stenosis (3) Lumbar spine instability Your Health Problems Are: Incision/Drains Swelling Goals to Promote Your Health * To prevent worsening of your condition and complications * To maintain your health at the optimal level Directions to Meet Your Goals Take your medications as prescribed Follow your dietary instruction Follow activity as directed Keep your appointments as scheduled Take your immunizations and boosters as scheduled If your symptoms worsen call your PCP, if no PCP go to Urgent Care Center or Emergency Room Smoking is Dangerous to Your Health. Avoid second hand smoke Call the 24-hour hour crisis hotline for domestic abuse at Kavya Wood Aug 21, 2016 09:48
[2016-08-21] MEDS: BISACODYL 10 MG SUPP RECTAL PRN (11:08)
[2016-08-21] MEDS: TAMSULOSIN HCL 0.4 MG CAP PO SCH ×2 (11:08→20:43)
[2016-08-21] MEDS: guaiFENesin E.R. 600 MG TAB PO SCH ×2 (11:08→20:42)
[2016-08-21] MEDS: ACETAMINOPHEN/HYDROcodone 325 MG/10 MG TAB PO PRN ×2 (14:40→20:39)
--- NOTE | 2016-08-21 14:45 | HHI.PR ---
Subjective Remarks Follow up asthma, bipolar disorder, spinal stenosis. The patient continues to have low back pain. Denies cough or dyspnea. Has had nausea and vomiting today. Objective Vitals Vital Signs Date Time Temp Pulse Resp B/P Pulse Ox O2 Delivery O2 Flow Rate FiO2 08/21/16 12:00 98.0 86 20 118/69 94 08/21/16 08:00 97.1 76 20 112/63 93 08/21/16 04:00 98.7 87 18 121/67 93 08/21/16 00:00 99.0 76 18 134/61 96 08/20/16 19:45 96.9 80 17 103/52 96 08/20/16 19:08 96 21 08/20/16 18:53 18 08/20/16 18:48 18 08/20/16 16:05 97.1 72 18 99/65 98 I/O 08/20/16 08/20/16 08/20/16 08/21/16 08/21/16 08/21/16 07:00 15:00 23:00 07:00 15:00 23:00 Intake Total 744 ml 640 ml 941 ml 1012 ml Output Total 300 ml 650 ml 675 ml 200 ml Balance 444 ml -10 ml 941 ml 337 ml -200 ml Intake Oral 120 ml 480 ml 480 ml IV Total 624 ml 640 ml 461 ml 532 ml Output Urine Total 300 ml 650 ml 675 ml 200 ml # Voids 0 # Bowel Movements 0 0 0 Result Diagram: 08/20/16 0615 Imaging Last Impressions Lumbar Spine X-Ray 08/19/16 0000 Signed Impressions: Service Date/Time: Friday, August 19, 2016 16:11 - CONCLUSION: Satisfactory operative appearance. Twan Jackson MD Objective Remarks General: No acute distress. Heart: Regular rate and rhythm. No murmur. Lungs: Clear to auscultation bilaterally. No wheezes, rales, or rhonchi. Breathing is nonlabored. Abdomen: Soft, nontender, nondistended. Extremities: No lower extremity edema. Psych: Alert and oriented. Procedures 08/19/16: Bilateral lumbar laminectomy from the left L3, L4 with bilateral lateral recess decompression. Bilateral lumbar laminectomy L4 5 from the left with subtotal facet resection. Posterior spinal fusion, L3 to L5. Posterior spinal segmental instrumentation L3 to L5. Posterior lateral interbody fusion, L3 4 and L4 5. Placement of interbody cages, L3 4 and L4 5. Bone grafting of the lumbar spine Urinary Catheter: No Vascular Central Line Catheter: No A/P Problem List: (1) Lumbar spinal stenosis ICD Code: M48.06 Status: Acute (2) Asthma ICD Code: J45.909 Status: Chronic (3) Bipolar disorder ICD Code: F31.9 Status: Chronic Assessment and Plan 1. Lumbar spinal stenosis: Status post lumbar laminectomy and posterior spinal fusion. Continue pain control, physical therapy. Management per orthopedic surgery. 2. Asthma: Nebulizer treatments as needed. 3. Bipolar disorder: Continue home medications. 4. DVT prophylaxis: SCDs. Discharge Planning Per orthopedic surgery. Possible discharge home tomorrow. Kvng Guardado MD Aug 21, 2016 14:45
[2016-08-21] MEDS: ONDANSETRON HCL 4 MG/2 ML VIAL IV PRN (15:13)
[2016-08-21] MEDS: MORPHINE SULFATE 8 MG/ML INJ IV PUSH PRN (15:53)
[2016-08-21] MEDS ORDERED: PILL SPLITTER OTHER PRN (16:45)
[2016-08-21] MEDS ORDERED: CYCLOBENZAPRINE HCL 10 MG TAB PO ONE (16:45)
[2016-08-21] MEDS: buPROPion HCL 75 MG TAB PO SCH (20:42)
[2016-08-21] MEDS: CYCLOBENZAPRINE HCL 10 MG TAB PO PRN (20:43)
[2016-08-21] MEDS: ZOLPIDEM TARTRATE 5 MG TAB PO PRN (23:07)
[2016-08-22] VITALS: BP 108/53; PULSE 71; RESP 16; TEMP 97.9; O2SAT 95
[2016-08-22] MEDS: ACETAMINOPHEN/HYDROcodone 325 MG/10 MG TAB PO PRN (02:18)
[2016-08-22] MEDS: MORPHINE SULFATE 8 MG/ML INJ IV PUSH PRN ×4 (02:52→21:30)
[2016-08-22 04:00] VITALS: BP 135/62; PULSE 94; RESP 16; TEMP 97.5; O2SAT 95
[2016-08-22] MEDS: CYCLOBENZAPRINE HCL 10 MG TAB PO PRN ×2 (06:42→19:46)
[2016-08-22] MEDS: LACTATED RINGER'S 1000 ML INJ 1,000 ML IV SCH ×2 (07:10→20:00)
--- NOTE | 2016-08-22 07:52 | PD.ORT.PN ---
Subjective Subjective Remarks The millan cath was 'pulled yesterday' per the . They stated she urinated twice. The RN states millan cath is still in. We are not sure what the is talking about. She still states she has severe pain but her notes she struggles with tolerating pain. No new radiating leg pain. Appetite better today. No new CP, SOB or abd pain. Nausea ok. Guaifenisine helping. Objective Vitals Vital Signs Date Time Temp Pulse Resp B/P Pulse Ox O2 Delivery O2 Flow Rate FiO2 08/22/16 04:00 97.5 94 16 135/62 95 08/22/16 00:00 97.9 71 16 108/53 95 08/21/16 22:00 93 21 08/21/16 20:00 97.1 74 18 109/46 95 08/21/16 17:00 97.8 75 16 134/68 91 08/21/16 12:00 98.0 86 20 118/69 94 08/21/16 08:00 97.1 76 20 112/63 93 I/O 08/21/16 08/21/16 08/21/16 08/22/16 08/22/16 08/22/16 07:00 15:00 23:00 07:00 15:00 23:00 Intake Total 1012 ml 720 ml 480 ml 240 ml Output Total 675 ml 200 ml Balance 337 ml 520 ml 480 ml 240 ml Intake Oral 480 ml 720 ml 480 ml 240 ml IV Total 532 ml Output Urine Total 675 ml 200 ml # Voids 3 2 2 # Bowel Movements 0 0 0 0 Result Diagram: 08/20/16 0615 Procedures Lumbar laminectomy L34, L45, posterior lumbar fusion L3-5, interbody cages L34, L45, posterior segmental instrumentation, bone graft. Objective Remarks Laying in bed, at bedside NAD VSS L/S Dressing c/d/i, no new drainage, mild spasms, no erythema Both calves supple, neg homans bilat +motor at, +sens, +nvi Assessment & Plan Ortho Post Op Day #: 3 Problem List: (1) Lumbar spine instability (2) Lumbar spinal stenosis (3) Lumbosacral radiculopathy (4) Urinary retention Assessment and Plan pod#3 s/p Lami L34, L45, Fusion L3-5, bone graft Change po meds to percocet 7.5mg. Add Soma 350 TID. Continue guaifenesin bid for hx of thick mucous. D/C millan cath. RN will call if no urination in 4-6 hours. Flomax 0.4 one more time today then d/c. Home med pending whether patient urinates today. PT - OOB w brace. Walker. I highly encouraged ambulation and IS. Dry dressing changes daily. Ok to d/c home later today when pain better controlled. F2F written. DME written. Kavya Wood Aug 22, 2016 07:52
[2016-08-22] MEDS ORDERED: OXYC1TAB35 PO (07:55)
[2016-08-22] MEDS ORDERED: SOMA350T PO (07:55)
[2016-08-22 08:00] VITALS: BP 131/62; PULSE 81; RESP 16; TEMP 97; O2SAT 94
[2016-08-22] MEDS ORDERED: oxyCODONE/ACETAMINOPHEN 7.5 MG/325 MG TAB PO PRN (08:00)
[2016-08-22] MEDS ORDERED: TAMSULOSIN HCL 0.4 MG CAP PO SCH (09:00)
[2016-08-22] MEDS: SODIUM CHLORIDE 0.9% FLUSH 5 ML FLUSH IVF SCH ×2 (09:00→19:48)
[2016-08-22] MEDS: DIVALPROEX DR 500 MG TABEC PO SCH ×2 (09:23→19:47)
[2016-08-22] MEDS: oxyCODONE/ACETAMINOPHEN 7.5 MG/325 MG TAB PO PRN ×3 (09:23→22:52)
[2016-08-22] MEDS: buPROPion HCL 150 MG SUSTAINED RELEASE TAB PO SCH (09:23)
[2016-08-22] MEDS: guaiFENesin E.R. 600 MG TAB PO SCH ×2 (09:23→19:47)
[2016-08-22] MEDS: DOCUSATE SODIUM 100 MG CAP PO SCH ×2 (09:23→19:47)
[2016-08-22] MEDS: CARISOPRODOL 350 MG TAB PO SCH ×3 (09:24→23:46)
[2016-08-22] MEDS: FLUTICASONE PROPIONATE 50 MCG/ACT 16 GM NASAL SPRAY EACH NARE SCH ×2 (09:25→19:48)
[2016-08-22] MEDS: BISACODYL 10 MG SUPP RECTAL PRN (09:28)
[2016-08-22 12:00] VITALS: BP 128/62; PULSE 85; RESP 16; TEMP 97.6; O2SAT 92
--- NOTE | 2016-08-22 13:43 | HHI.PR ---
Subjective Remarks Follow up back pain. Patient states that she feels better than yesterday, but is still requiring IV pain medications. She now reports shooting pain from the left buttock down to the lower left leg. Objective Vitals Vital Signs Date Time Temp Pulse Resp B/P Pulse Ox O2 Delivery O2 Flow Rate FiO2 08/22/16 08:00 97.0 81 16 131/62 94 08/22/16 04:00 97.5 94 16 135/62 95 08/22/16 00:00 97.9 71 16 108/53 95 08/21/16 22:00 93 21 08/21/16 20:00 97.1 74 18 109/46 95 08/21/16 17:00 97.8 75 16 134/68 91 I/O 08/21/16 08/21/16 08/21/16 08/22/16 08/22/16 08/22/16 07:00 15:00 23:00 07:00 15:00 23:00 Intake Total 1012 ml 720 ml 480 ml 240 ml Output Total 675 ml 200 ml Balance 337 ml 520 ml 480 ml 240 ml Intake Oral 480 ml 720 ml 480 ml 240 ml IV Total 532 ml Output Urine Total 675 ml 200 ml # Voids 3 2 2 # Bowel Movements 0 0 0 0 Result Diagram: 08/20/16 0615 Imaging Last Impressions Lumbar Spine X-Ray 08/19/16 0000 Signed Impressions: Service Date/Time: Friday, August 19, 2016 16:11 - CONCLUSION: Satisfactory operative appearance. Twan Jackson MD Objective Remarks General: No acute distress. Heart: Regular rate and rhythm. No murmur. Lungs: Clear to auscultation bilaterally. No wheezes, rales, or rhonchi. Breathing is nonlabored. Abdomen: Soft, nontender, nondistended. Extremities: No lower extremity edema. Psych: Alert and oriented. Procedures 08/19/16: Bilateral lumbar laminectomy from the left L3, L4 with bilateral lateral recess decompression. Bilateral lumbar laminectomy L4 5 from the left with subtotal facet resection. Posterior spinal fusion, L3 to L5. Posterior spinal segmental instrumentation L3 to L5. Posterior lateral interbody fusion, L3 4 and L4 5. Placement of interbody cages, L3 4 and L4 5. Bone grafting of the lumbar spine Urinary Catheter: No Vascular Central Line Catheter: No A/P Problem List: (1) Lumbar spinal stenosis ICD Code: M48.06 Status: Acute (2) Asthma ICD Code: J45.909 Status: Chronic (3) Bipolar disorder ICD Code: F31.9 Status: Chronic Assessment and Plan 1. Lumbar spinal stenosis: Status post lumbar laminectomy and posterior spinal fusion. Continue pain control, physical therapy, Flexeril. Management per orthopedic surgery. Complaining of sciatic pain. 2. Asthma: Nebulizer treatments as needed. 3. Bipolar disorder: Continue home medications. 4. DVT prophylaxis: SCDs. Discharge Planning Per orthopedic surgery. Possible discharge home tomorrow. Kvng Guardado MD Aug 22, 2016 13:43
[2016-08-22 16:00] VITALS: BP 132/61; PULSE 90; RESP 16; TEMP 96.3; O2SAT 94
[2016-08-22] MEDS: buPROPion HCL 75 MG TAB PO SCH (19:47)
[2016-08-22 20:50] VITALS: BP 133/62; PULSE 88; RESP 17; TEMP 97; O2SAT 94
[2016-08-22] MEDS: ZOLPIDEM TARTRATE 5 MG TAB PO PRN (22:52)
[2016-08-23] VITALS: BP 136/80; PULSE 80; RESP 20; TEMP 95.8; O2SAT 93
[2016-08-23] MEDS: MORPHINE SULFATE 8 MG/ML INJ IV PUSH PRN (02:21)
[2016-08-23 04:00] VITALS: BP 135/67; PULSE 82; RESP 16; TEMP 96.4; O2SAT 91
[2016-08-23] MEDS: oxyCODONE/ACETAMINOPHEN 7.5 MG/325 MG TAB PO PRN ×3 (06:24→14:36)
[2016-08-23] MEDS: CYCLOBENZAPRINE HCL 10 MG TAB PO PRN (06:24)
[2016-08-23 07:11] VITALS: BP 110/57; PULSE 73; RESP 18; TEMP 95.7; O2SAT 92
--- NOTE | 2016-08-23 08:16 | PD.ORT.PN ---
Subjective Post Op Day #: 4 Subjective Remarks pain a little better but still struggling with any activity. Objective Vitals Vital Signs Date Time Temp Pulse Resp B/P Pulse Ox O2 Delivery O2 Flow Rate FiO2 08/23/16 04:00 96.4 82 16 135/67 91 08/23/16 00:00 95.8 80 20 136/80 93 08/22/16 20:50 97.0 88 17 133/62 94 08/22/16 16:00 96.3 90 16 132/61 94 08/22/16 12:00 97.6 85 16 128/62 92 I/O 08/22/16 08/22/16 08/22/16 08/23/16 08/23/16 08/23/16 07:00 15:00 23:00 07:00 15:00 23:00 Intake Total 240 ml 330 ml 120 ml 240 ml Balance 240 ml 330 ml 120 ml 240 ml Intake Oral 240 ml 330 ml 120 ml 240 ml # Voids 2 3 1 1 # Bowel Movements 0 3 2 1 Result Diagram: 08/20/16 0615 Procedures Lumbar laminectomy L34, L45, posterior lumbar fusion L3-5, interbody cages L34, L45, posterior segmental instrumentation, bone graft. Objective Remarks Laying in bed, at bedside NAD VSS L/S incisions no erythema or drainage, mild spasms, mild ecchymosis Both calves supple, neg homans bilat +motor at, +sens, +nvi Assessment & Plan Ortho Post Op Day #: 4 Problem List: (1) Lumbar spine instability (2) Lumbar spinal stenosis (3) Lumbosacral radiculopathy (4) Urinary retention Assessment and Plan pod#4 s/p Lami L34, L45, Fusion L3-5, bone graft percocet 7.5mg. Soma 350 TID. Continue guaifenesin bid for hx of thick mucous. Flomax 0.4 one more time today then d/c. Home med pending whether patient urinates today. PT - OOB w brace. Walker. I highly encouraged ambulation and IS. Dry dressing changes daily. Ok to d/c home later today when pain better controlled. F2F written. DME written. Rashid Mcneil Aug 23, 2016 08:16
[2016-08-23] MEDS: SODIUM CHLORIDE 0.9% FLUSH 5 ML FLUSH IVF SCH (09:00)
[2016-08-23] MEDS: FLUTICASONE PROPIONATE 50 MCG/ACT 16 GM NASAL SPRAY EACH NARE SCH (09:00)
[2016-08-23] MEDS: buPROPion HCL 150 MG SUSTAINED RELEASE TAB PO SCH (10:21)
[2016-08-23] MEDS: guaiFENesin E.R. 600 MG TAB PO SCH (10:21)
[2016-08-23] MEDS: CARISOPRODOL 350 MG TAB PO SCH (10:21)
[2016-08-23] MEDS: DIVALPROEX DR 500 MG TABEC PO SCH (10:22)
[2016-08-23] MEDS: DOCUSATE SODIUM 100 MG CAP PO SCH (10:22)
[2016-08-23 12:00] VITALS: BP 129/59; PULSE 75; RESP 18; TEMP 96.6; O2SAT 93
--- NOTE | 2016-08-23 12:05 | HHI.PR ---
Subjective Remarks Follow up back pain, spasm. Patient is very uncomfortable upon my arrival to the room. She states that she just got back into bed and has severe pain in both upper legs just below the buttocks. She states that this happens with movement. Cannot find a comfortable position. She is trying to avoid IV pain meds, but did require morphine overnight. Objective Vitals Vital Signs Date Time Temp Pulse Resp B/P Pulse Ox O2 Delivery O2 Flow Rate FiO2 08/23/16 07:11 95.7 73 18 110/57 92 08/23/16 04:00 96.4 82 16 135/67 91 08/23/16 00:00 95.8 80 20 136/80 93 08/22/16 20:50 97.0 88 17 133/62 94 08/22/16 16:00 96.3 90 16 132/61 94 I/O 08/22/16 08/22/16 08/22/16 08/23/16 08/23/16 08/23/16 07:00 15:00 23:00 07:00 15:00 23:00 Intake Total 240 ml 330 ml 120 ml 240 ml Balance 240 ml 330 ml 120 ml 240 ml Intake Oral 240 ml 330 ml 120 ml 240 ml # Voids 2 3 1 1 # Bowel Movements 0 3 2 1 Result Diagram: 08/20/16 0615 Imaging Last Impressions Lumbar Spine X-Ray 08/19/16 0000 Signed Impressions: Service Date/Time: Friday, August 19, 2016 16:11 - CONCLUSION: Satisfactory operative appearance. Twan Jackson MD Objective Remarks General: No acute distress. Appears uncomfortable. Heart: Regular rate and rhythm. No murmur. Lungs: Clear to auscultation bilaterally. No wheezes, rales, or rhonchi. Breathing is nonlabored. Abdomen: Soft, nontender, nondistended. Extremities: No lower extremity edema. Psych: Alert and oriented. Procedures 08/19/16: Bilateral lumbar laminectomy from the left L3, L4 with bilateral lateral recess decompression. Bilateral lumbar laminectomy L4 5 from the left with subtotal facet resection. Posterior spinal fusion, L3 to L5. Posterior spinal segmental instrumentation L3 to L5. Posterior lateral interbody fusion, L3 4 and L4 5. Placement of interbody cages, L3 4 and L4 5. Bone grafting of the lumbar spine Urinary Catheter: No Vascular Central Line Catheter: No A/P Problem List: (1) Lumbar spinal stenosis ICD Code: M48.06 Status: Acute (2) Asthma ICD Code: J45.909 Status: Chronic (3) Bipolar disorder ICD Code: F31.9 Status: Chronic Assessment and Plan 1. Lumbar spinal stenosis: Status post lumbar laminectomy and posterior spinal fusion. Continue pain control, physical therapy, Flexeril. Management per orthopedic surgery. Complaining of severe pain/spasm after movement/activity. 2. Asthma: Nebulizer treatments as needed. 3. Bipolar disorder: Continue home medications. 4. DVT prophylaxis: SCDs. Discharge Planning Per orthopedic surgery. Plan for discharge home when pain is adequately controlled. Kvng Guardado MD Aug 23, 2016 12:05
== END 2016-08-23 15:51 | disposition home health service (06) | DRG 460 ==
LOC: HSDI 08-19 08:16 → N06B 08-19 18:28
PROVIDERS: ADMIT Orthopaedic Surgery Orthopaedic Surgery of the Spine; ATTEND Orthopaedic Surgery Orthopaedic Surgery of the Spine
PROC: 01NB0ZZ Release Lumbar Nerve, Open Approach (ICD-10-PCS; 2016-08-19)
PROC: 0ST20ZZ Resection of Lumbar Vertebral Disc, Open Approach (ICD-10-PCS; 2016-08-19)
PROC: 0SG10AJ Fusion of 2 or more Lumbar Vertebral Joints with Interbody Fusion Device, Posterior Approach, Anterior Column, Open Approach (ICD-10-PCS; principal; 2016-08-19 12:08)
DX: M43.16 Spondylolisthesis, lumbar region (principal); M53.2X6 Spinal instabilities, lumbar region; M51.36 Other intervertebral disc degeneration, lumbar region; M48.06 Spinal stenosis, lumbar region; M54.17 Radiculopathy, lumbosacral region; J45.909 Unspecified asthma, uncomplicated; F31.9 Bipolar disorder, unspecified; R33.9 Retention of urine, unspecified; R11.2 Nausea with vomiting, unspecified; M62.830 Muscle spasm of back
CPT/HCPCS: 72100; 76000; 85014; 85018; 86850; 86900; 86901; 94664; C1713; J0131; J0690; J1100; J1580; J2250; J2270; J2310; J2405; J2710; J3010; J3370; J7050; J7120; J7613; Q0169